=== PATIENT | female | born 1995 | race Two or more races ===

== ENCOUNTER 2020-10-05 17:32 | Emergency (ER) | payer BC, MEDICAID ==
[~2020-10-05] VITALS: Ht 167.6 cm; Wt 85.3 kg
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
[2020-10-05 18:25] LABS: BILIRUBIN,URINE Negative (NEGATIVE); COLOR,URINE YELLOW (YELLOW); LEUKOCYTE ESTERASE ,URINE Small (NEGATIVE); NITRITE, URINE Negative (NEGATIVE); PROTEIN,URINE Negative (NEGATIVE); UGLUCOSE Negative (NEGATIVE); UROBILINOGEN,URINE 0.2 EU/dL (0.2)
[2020-10-05 18:35] LABS: BASOPHILS % (AUTO) 0.4 % (0.0-2.0); EOSINOPHILS % (AUTO) 0.7 % (0.0-6.0); HEMATOCRIT 39 % (33-45); HEMOGLOBIN 12.4 g/dL (11.5-14.8); LYMPHOCYTES # (AUTO) 0.9 K/uL (0.8-4.8); LYMPHOCYTES % (AUTO) 8.5 % (20.0-44.0); MEAN CORPUSCULAR HGB CONC 32 g/dl (31.0-36.0); MEAN CORPUSCULAR VOLUME 91 fL (82-100); MONOCYTES # (AUTO) 0.7 K/uL (0.1-1.30); MONOCYTES % (AUTO) 6.3 % (2.0-12.0); NEUTROPHILS # (AUTO) 8.6 K/uL (1.8-8.9); NEUTROPHILS % (AUTO) 84.1 % (43.0-81.0); PLATELET COUNT (AUTO) 253 K/uL (150-450); RED BLOOD CELL COUNT(AUTO) 4.32 MIL/uL (4.0-5.2); WHITE BLOOD COUNT (AUTO) 10.3 K/uL (4.3-11.0)
[2020-10-05 18:41] LABS: BACTERIA,URINE 1+ /HPF (None Seen); SQUAMOUS EPITHELIAL CELL,UR Few /HPF (None Seen)
[2020-10-05 18:46] LABS: CALCIUM, SERUM 8.4 mg/dL (8.5-10.1); CARBON DIOXIDE 26 mmol/L (21-32); CHLORIDE 105 mmol/L (98-107); CREATININE 0.9 mg/dL (0.6-1.3); GLUCOSE 89 mg/dL (74-106); POTASSIUM 3.9 mmol/L (3.5-5.1); SODIUM SERUM 137 mmol/L (136-145); UREA NITROGEN, BLOOD 12 mg/dL (7-18)
[2020-10-05 18:52] LABS: ALANINE AMINOTRANSFERASE 16 U/L (12-78); ALBUMIN 3.2 g/dL (3.4-5.0); ALKALINE PHOSPHATASE 87 U/L (46-116); ASPARTATE AMINOTRANSFERASE 13 U/L (15-37); BILIRUBIN,DIRECT 0.1 mg/dL (0.0-0.2); BILIRUBIN,TOTAL 0.2 mg/dL (0.2-1.0); TOTAL PROTEIN, SERUM 7.2 g/dL (6.4-8.2)
[2020-10-05 18:56] LABS: ACETAMINOPHEN < 2 ug/ml (10-30); ALCOHOL, BLOOD < 3 mg/dL (0-0)
[2020-10-05] MEDS ORDERED: CEPHALEXIN MONOHYDRATE 500 MG CAPSULE PO ONE ×2 (19:00→19:21)
--- NOTE | 2020-10-05 19:11 | NUR ---
COVID SWAB COLLECTED AND SENT TO LAB
--- NOTE | 2020-10-05 19:29 | NUR ---
Georgina Gutierrez (Mother) - [phone] Per mother do not release to father.
--- NOTE | 2020-10-05 23:59 | NUR ---
SPOKE TO EUFEMIA FROM [facility]. REQUESTED FOR HEAD CT DUE TO PT HAVING HX OF ROSE ROSE DISEASE. ER AWARE.
--- NOTE | 2020-10-06 01:17 | NUR ---
CT HEAD RESULTS WERE FAXED TO [facility]
--- NOTE | 2020-10-06 01:30 | NUR ---
ACCEPTED BY DR. GALARZA SEND AT 0300 TO UNIT 2 AT [facility]
--- NOTE | 2020-10-06 01:40 | NUR ---
[facility] TRANSPORTATION FOR 90 MIN FROM NOW
[2020-10-06 02:23] VITALS: BP 119/72
--- NOTE | 2020-10-06 04:00 | NUR ---
[facility]
[2020-10-06] MEDS ORDERED: CEPH500T PO (04:10)
--- NOTE | 2020-10-06 04:22 | NUR ---
pt was picked up by [facility] ambulance and was transferred to [facility] in stable conditions . all belongings were picked up
== END 2020-10-06 04:40 ==
LOC: ER 17:36
DX: R45.851 Suicidal ideations (principal); N39.0 Urinary tract infection, site not specified; I67.5 Moyamoya disease; G40.909 Epilepsy, unspecified, not intractable, without status epilepticus; F31.9 Bipolar disorder, unspecified; Z20.822 Contact with and (suspected) exposure to COVID-19
CPT/HCPCS: 36415; 70450; 80048; 80076; 80143; 80307; 80320; 81001; 84703; 85025; 87086; 87426; 99285; C9803; G0480